=== PATIENT | male | born 1995 | race Caucasian/White ===

== ENCOUNTER 2016-07-27 21:01 | Emergency (ER) | payer BC, OTHER ==
[~2016-07-27] VITALS: Ht 185.4 cm; Wt 90.7 kg
--- NOTE | 2016-07-27 23:44 | REP ---
Clinical: Trauma. Technique: AP and lateral views of the right forearm. Findings: No acute fracture dislocation. No subcutaneous emphysema or radiodense foreign body. Surrounding soft tissues are normal. Impression: No acute fracture dislocation. Signed by Kush Puri MD 07/27/2016 11:35 P
--- NOTE | 2016-07-27 23:45 | REP ---
Clinical: Trauma. Technique: AP, lateral, bilateral oblique views of the right hand. Findings: Acute transverse fractures through the mid fourth and fifth metacarpal shafts noted with moderate anterior angulation and displacement. Overlying soft tissue swelling without subcutaneous emphysema or radiodense foreign body. Impression: Angulated fractures of the mid fourth and fifth metacarpal shafts. Signed by Kush Puri MD 07/27/2016 11:37 P
[2016-07-28] MEDS ORDERED: PERCOCET 5MG/325MG TAB PO ONE (00:15)
[2016-07-28] MEDS ORDERED: OXYCODONE/APAP 5MG/325MG(BULK FOR ED) 1 TABLET PO ONE (00:15)
[2016-07-28 00:19] VITALS: BP 144/83
== END 2016-07-28 00:29 | disposition home or self-care (01) ==
LOC: M ED 22:25
DX: S62.91XA Unspecified fracture of right hand, initial encounter for closed fracture (principal); W22.8XXA Striking against or struck by other objects, initial encounter; Y92.89 Other specified places as the place of occurrence of the external cause; Y93.89 Activity, other specified; Y99.8 Other external cause status; Z87.891 Personal history of nicotine dependence

== ENCOUNTER → 2016-09-06 | Outpatient (REF) | payer OTHER ==
[2016-09-06 15:10] LABS: MEAN CORPUSCULAR HEMOGLOBIN 30.9 pg (27.0-33.0); MEAN CORPUSCULAR HGB CONC 34.6 g/dl (32.0-36.5); MEAN CORPUSCULAR VOLUME 89.3 fl (80.0-96.0); RED CELL DISTRIBUTION WIDTH 12.3 % (11.5-14.5); WHITE BLOOD COUNT 5.3 K/mm3 (4.0-10.0)
[2016-09-06 15:38] LABS: ALBUMIN 4.2 GM/DL (3.2-5.2); ALBUMIN/GLOBULIN RATIO 1.35 (1.00-1.93); ALKALINE PHOSPHATASE 83 U/L (45-117); ALT/SGPT 114 U/L (12-78); ANION GAP 8 MEQ/L (8-16); AST/SGOT 41 U/L (15-37); BILIRUBIN,TOTAL 0.5 MG/DL (0.2-1.0); BLOOD UREA NITROGEN 19 MG/DL (7-18); CALCIUM LEVEL 9.2 MG/DL (8.5-10.1); CARBON DIOXIDE LEVEL 25 MEQ/L (21-32); CHLORIDE LEVEL 107 MEQ/L (98-107); CHOLESTEROL LEVEL 194 MG/DL (<200); CREATININE FOR GFR 0.85 MG/DL (0.70-1.30); GLOMERULAR FILTRATION RATE > 60.0 (>60); GLUCOSE, FASTING 91 MG/DL (70-105); POTASSIUM SERUM 4.1 MEQ/L (3.5-5.1); SODIUM LEVEL 140 MEQ/L (136-145); TOTAL PROTEIN 7.3 GM/DL (6.4-8.2); TRIGLYCERIDES LEVEL 116 MG/DL (<150)
== END ==
LOC: M SFHCLACO 10:18
PROVIDERS: ATTEND Physician Assistant
DX: Z00.00 Encounter for general adult medical examination without abnormal findings (principal)

== ENCOUNTER → 2017-02-07 | Outpatient (REF) | payer OTHER ==
[2017-02-07 15:43] LABS: ALBUMIN/GLOBULIN RATIO 1.33 (1.00-1.93); BILIRUBIN,DIRECT 0.2 MG/DL (0.0-0.2); BILIRUBIN,TOTAL 0.6 MG/DL (0.2-1.0)
== END ==
LOC: M SFHCLACO 08:49
PROVIDERS: ATTEND Physician Assistant
DX: R74.8 Abnormal levels of other serum enzymes (principal); E55.9 Vitamin D deficiency, unspecified

== ENCOUNTER 2017-10-26 22:23 | Emergency (ER) | payer OTHER ==
[2017-10-27] MEDS: KETOROLAC TROMETHAMINE 10 MG TAB PO (00:15)
[2017-10-27] MEDS: CYCLOBENZAPRINE 10 MG TAB PO (02:10)
== END 2017-10-27 02:11 | disposition home or self-care (01) ==
LOC: M ED 22:23
DX: M54.5 Low back pain (principal); S00.01XA Abrasion of scalp, initial encounter; V49.49XA Driver injured in collision with other motor vehicles in traffic accident, initial encounter; Y92.410 Unspecified street and highway as the place of occurrence of the external cause; Z88.0 Allergy status to penicillin; F17.210 Nicotine dependence, cigarettes, uncomplicated
CPT/HCPCS: 72072

== ENCOUNTER 2017-10-27 11:35 | Emergency (ER) | payer OTHER | END 2017-10-27 13:10 | disposition home or self-care (01) | LOC: M ED 11:35 | DX: S22.080A Wedge compression fracture of T11-T12 vertebra, initial encounter for closed fracture (principal); V99.XXXD Unspecified transport accident, subsequent encounter; Y92.89 Other specified places as the place of occurrence of the external cause; Z87.81 Personal history of (healed) traumatic fracture; F17.200 Nicotine dependence, unspecified, uncomplicated; Z88.0 Allergy status to penicillin; Z79.899 Other long term (current) drug therapy | CPT/HCPCS: 72128 ==

== ENCOUNTER → 2018-06-27 | Outpatient (REF) | payer OTHER ==
[~2018-06-27] MED LIST: CYCL10TA PO; KETO10TAB PO
== END ==
LOC: M LAB REF 19:54
PROVIDERS: ATTEND Physician Assistant
DX: J02.9 Acute pharyngitis, unspecified (principal)